=== PATIENT | male | born 1970 | race Caucasian/White ===

== ENCOUNTER 2017-09-02 07:34 | Outpatient (CLI) | payer OTHER ==
[~2017-09-02 07:34] MED LIST: DESCOVY 200-251 EACH; NORVIR100 MG; PREDNISONE20 MG PO; PREZISTA800 MG
== END 2017-09-02 07:45 | disposition home or self-care (01) ==
LOC: LAB 07:34
DX: B20 Human immunodeficiency virus [HIV] disease (principal); C85.13 Unspecified B-cell lymphoma, intra-abdominal lymph nodes; E78.2 Mixed hyperlipidemia; C85.86 Other specified types of non-Hodgkin lymphoma, intrapelvic lymph nodes; Z92.21 Personal history of antineoplastic chemotherapy; D50.8 Other iron deficiency anemias; D51.8 Other vitamin B12 deficiency anemias; D51.0 Vitamin B12 deficiency anemia due to intrinsic factor deficiency; D51.1 Vitamin B12 deficiency anemia due to selective vitamin B12 malabsorption with proteinuria; E55.9 Vitamin D deficiency, unspecified; K90.89 Other intestinal malabsorption